=== PATIENT | male | born 1990 | race African-American/Black ===

== ENCOUNTER 2025-06-02 19:30 | Inpatient (IN) | payer OTHER ==
[~2025-06-02] VITALS: Ht 185.4 cm; Wt 104.5 kg
[2025-06-02] MEDS ORDERED: ACETAMINOPHEN 325 MG TAB PO PRN (22:25)
[2025-06-02] MEDS ORDERED: MOM 30 ML SUSPENSION UDC PO PRN (22:25)
[2025-06-02] MEDS ORDERED: MAALOX 30 ML SUSP *UDC PO PRN (22:25)
[2025-06-02] MEDS ORDERED: IBUPROFEN 400 MG TAB PO PRN (22:25)
[2025-06-02] MEDS ORDERED: traZODone 50 MG TAB PO PRN (22:25)
[2025-06-03] MEDS ORDERED: DICL100G10 TOP (00:33)
[2025-06-03] MEDS ORDERED: ARIP20TA51 PO (00:33)
[2025-06-03] MEDS ORDERED: HOME MED LIST COMPLETE! XX SCH (00:35)
[2025-06-03 00:56] VITALS: BP 138/73; TEMP 97.4; O2SAT 98
[2025-06-03 13:20] LABS: PLATELET COUNT, AUTOMATED 288 10^3/uL (150-450)
[2025-06-03] MEDS: DIVALPROEX 250 MG TAB PO SCH (13:42)
[2025-06-03 13:45] LABS: ALT/SGPT 22 U/L (7.0-40); AST/SGOT 23 U/L (<34); CALCIUM LEVEL 9.4 MG/DL (8.5-10.1); CARBON DIOXIDE LEVEL 28 MMOL/L (20-31); CHLORIDE LEVEL 105 MMOL/L (98-107); CREATININE FOR GFR 0.93 MG/DL (0.70-1.30); GLOMERULAR FILTRATION RATE > 90.0 (>60); POTASSIUM SERUM 4.4 MMOL/L (3.5-5.1); SODIUM LEVEL 141 MMOL/L (136-145)
[2025-06-04 06:25] VITALS: BP 134/73; TEMP 98.7; O2SAT 100
[2025-06-04] MEDS ORDERED: DIVA-65 PO (08:34)
== END 2025-06-04 11:37 | disposition home or self-care (01) | DRG 753 ==
LOC: M ED 19:30 → M ED INP 22:24 → M PSY 06-03 00:07
PROVIDERS: ADMIT Psychiatry & Neurology Neurology; ATTEND Psychiatry & Neurology Neurology
DX: F31.9 Bipolar disorder, unspecified (principal); F60.2 Antisocial personality disorder; F12.90 Cannabis use, unspecified, uncomplicated; R45.851 Suicidal ideations; Z86.16 Personal history of COVID-19; M54.59 Other low back pain